=== PATIENT | female | born 1950 | race Caucasian/White ===

== ENCOUNTER 2017-09-12 14:23 | Inpatient (IN) ==
[2017-09-12 14:55] LABS: Basophils # 0.1 10*3/uL (0.0-0.2); Basophils % 0.4 % (0.0-0.8); Eosinophils % 0.1 % (0.00-10.9); Hematocrit 47.4 VOL% (35.7-47.0); Hemoglobin 14.2 GM/DL (12.0-16.0); Immature Granulocytes % 0.7 %; Lymphocytes # 0.6 10*3/uL (1.4-4.0); Lymphocytes % 4.3 % (21.3-54.2); Mean Corpuscular Hemoglobin 27 PG (27-34); Mean Corpuscular Volume 91.3 FL (87-102); Mean Platelet Volume 10.4 FL (9.6-12.0); Monocytes # 0.2 10*3/uL (0.11-0.8); Monocytes % 1.3 % (1.7-12.7); Neutrophils # 13.1 10*3/uL (1.4-7.4); Neutrophils % 93.2 % (38.7-73.9); Platelet Count 241 T/CUMM (130-400); Red Blood Count 5.19 MC/CUMM (3.8-5.5); Red Cell Distribution Width 17.9 % (9.3-17.3)
[2017-09-12 15:05] LABS: PT Patient Result 10.4 SECS; Partial Thromboplastin Time 25.1 SECS (0-40)
[2017-09-12 15:12] LABS: ABG Base Excess 9.2 MMOL/L (-2.5-2.5); ABG HCO3 39.9 MMOL/L (20-26); ABG Oxygen Saturation 99.6 % (95-100); ABG PH 7.264 (7.35-7.45); ABG PO2 333.5 MM HG (80-95); ABG TCO2 42.7 MMOL/L (23-27)
[2017-09-12 15:13] LABS: Albumin 3.7 G/DL (3.4-5.0); Bilirubin,Total 0.6 MG/DL (0.2-1.0); Calcium 8.8 MG/DL (8.5-10.1); Osmolality,Calculated 272.2 MOS/KG (273-304)
[2017-09-12 15:15] LABS: ABG PCO2 90.1 MM HG (35-48)
[2017-09-12] MEDS ORDERED: ROCURONIUM 100 MG/10 ML VIAL IV ONE ×2 (15:29→15:35)
[2017-09-12] MEDS ORDERED: PROPOFOL 200 MG/20 ML VIAL IV ONE (15:31)
[2017-09-12] MEDS ORDERED: ETOMIDATE 20 MG/10 ML VIAL IV ONE ×2 (15:34→16:25)
[2017-09-12] MEDS ORDERED: PROPOFOL 1,000 MG/100 ML BOTTLE IV ONE (15:39)
[2017-09-12] MEDS: PROPOFOL 1,000 MG/100 ML BOTTLE IV SCH (15:53)
[2017-09-12] MEDS ORDERED: AZITHROMYCIN INJ 500 MG in SODIUM CHLORIDE 0.9% 250 ML IV STA (16:06)
[2017-09-12] MEDS ORDERED: methylPREDNISolone SOD SUC 125 MG/2 ML VIAL IV STA (16:06)
[2017-09-12] MEDS ORDERED: AZITHROMYCIN 500 MG VIAL IV ONE (16:30)
[2017-09-12] MEDS ORDERED: methylPREDNISolone SOD SUC 125 MG/2 ML VIAL ONE (16:30)
[2017-09-12] MEDS ORDERED: SODIUM CHLORIDE 0.9% 1,000 ML IV STA (17:24)
[2017-09-12 17:28] LABS: Lymphocytes 3 % (20-55); Segmented Neutrophils 96 % (50-85); Total Cells Counted 100
[2017-09-12 17:29] LABS: Platelet Estimate Normal; Polychromasia Slight
[2017-09-12 18:01] LABS: ABG Base Excess 9.8 MMOL/L (-2.5-2.5); ABG HCO3 33.6 MMOL/L (20-26); ABG PCO2 54.7 MM HG (35-48); ABG PH 7.429 (7.35-7.45); ABG TCO2 31.9 MMOL/L (23-27); Pt O2 Delivery Device Ventilator
[2017-09-12 18:09] LABS: Apearance,Urine CLEAR (Clear); Bilirubin,Urine Negative (Negative); Blood, Urine Negative (Negative); Glucose,Urine (UA) 50 mg/dL (Negative); Ketones,Urine Negative (Negative); Mucus,Urine Occasional /LPF (Occasional); Nitrite,Urine Negative (Negative); Protein,Urine Negative; RBC,Urine <1 /HPF (0-4); Urine Color Yellow (Yellow); Urine Specific Gravity 1.021 (1.001-1.035); Urine Urobilinogen < 2.0 EU/DL (0.2-1.0); WBC,Urine <1 /HPF (0-6)
[2017-09-12] MEDS: MORPHINE 2 MG/1 ML SYRINGE IV PRN (20:48)
[2017-09-13] MEDS: MORPHINE 2 MG/1 ML SYRINGE IV PRN ×5 (01:15→21:34)
[2017-09-13 05:25] LABS: Hematocrit 38.4 VOL% (35.7-47.0); Hemoglobin 12.4 GM/DL (12.0-16.0); Immature Granulocytes % 0.8 %; Immature Granulocytes Absolute 0.05 #; Lymphocytes # 0.7 10*3/uL (1.4-4.0); Lymphocytes % 11.3 % (21.3-54.2); Mean Corpuscular HGB Conc 32.3 GM/DL (32-36); Mean Corpuscular Hemoglobin 28 PG (27-34); Mean Corpuscular Volume 85.9 FL (87-102); Mean Platelet Volume 10.9 FL (9.6-12.0); Monocytes # 0.4 10*3/uL (0.11-0.8); Monocytes % 5.8 % (1.7-12.7); Neutrophils # 5.4 10*3/uL (1.4-7.4); Neutrophils % 82.1 % (38.7-73.9); Red Blood Count 4.47 MC/CUMM (3.8-5.5); Red Cell Distribution Width 17.3 % (9.3-17.3)
[2017-09-13 05:27] LABS: Platelet Count 192 T/CUMM (130-400); White Blood Count 6.6 T/CUMM (4-12)
[2017-09-13 05:47] LABS: Potassium 4.5 MMOL/L (3.5-5.1)
[2017-09-13] MEDS ORDERED: FUROSEMIDE 40 MG/4 ML VIAL IV ONE (08:27)
[2017-09-13] MEDS: methylPREDNISolone SOD SUC 40 MG/1 ML VIAL IV SCH ×3 (08:27→21:34)
[2017-09-13] MEDS: PANTOPRAZOLE 40 MG VIAL IV SCH (09:39)
[2017-09-13] MEDS: ALBUTEROL/IPRATROPIUM 3 ML NEB RESP TX SCH ×2 (12:08→20:38)
[2017-09-13] MEDS: PROPOFOL 1,000 MG/100 ML BOTTLE IV SCH ×3 (12:55→22:31)
[2017-09-13] MEDS ORDERED: AZITHROMYCIN INJ 500 MG in SODIUM CHLORIDE 0.9% 250 ML IV SCH (17:30)
[2017-09-14] MEDS: methylPREDNISolone SOD SUC 40 MG/1 ML VIAL IV SCH ×4 (01:45→20:18)
[2017-09-14] MEDS: ALBUTEROL/IPRATROPIUM 3 ML NEB RESP TX SCH ×4 (01:52→20:34)
[2017-09-14 04:07] LABS: Hemoglobin 12.4 GM/DL (12.0-16.0); Immature Granulocytes % 0.5 %; Immature Granulocytes Absolute 0.04 #; Lymphocytes # 0.5 10*3/uL (1.4-4.0); Lymphocytes % 5.2 % (21.3-54.2); Mean Corpuscular Hemoglobin 27 PG (27-34); Monocytes # 0.4 10*3/uL (0.11-0.8); Monocytes % 4.2 % (1.7-12.7); Neutrophils # 7.9 10*3/uL (1.4-7.4); Neutrophils % 90.1 % (38.7-73.9); Platelet Count 203 T/CUMM (130-400); Red Cell Distribution Width 17.4 % (9.3-17.3); White Blood Count 8.8 T/CUMM (4-12)
[2017-09-14 04:31] LABS: Calcium 8.2 MG/DL (8.5-10.1); Osmolality,Calculated 279.5 MOS/KG (273-304); Potassium 3.9 MMOL/L (3.5-5.1)
[2017-09-14 07:26] LABS: ABG Base Excess 7.4 MMOL/L (-2.5-2.5); ABG HCO3 31.2 MMOL/L (20-26); ABG Oxygen Saturation 99.9 % (95-100); ABG PCO2 51.5 MM HG (35-48); ABG TCO2 29.2 MMOL/L (23-27); Allen Test Positive; Pt O2 Delivery Device Ventilator
[2017-09-14] MEDS: PANTOPRAZOLE 40 MG VIAL IV SCH (08:13)
[2017-09-14] MEDS: PROPOFOL 1,000 MG/100 ML BOTTLE IV SCH ×4 (08:14→23:16)
[2017-09-14] MEDS ORDERED: SODIUM CHLORIDE 0.9% 250 ML IV ONE (09:26)
[2017-09-14] MEDS: SODIUM CHLORIDE 0.9% 1,000 ML IV SCH ×2 (09:37→17:08)
[2017-09-14] MEDS: SODIUM CHLORIDE 0.9% 500 ML IV ONE ×2 (14:20→14:35)
[2017-09-14] MEDS: MORPHINE 2 MG/1 ML SYRINGE IV PRN ×2 (14:25→20:18)
[2017-09-14] MEDS: AZITHROMYCIN 250 MG TABLET PO SCH (20:19)
[2017-09-15] MEDS: SODIUM CHLORIDE 0.9% 1,000 ML IV SCH ×4 (00:07→19:10)
[2017-09-15] MEDS: ALBUTEROL/IPRATROPIUM 3 ML NEB RESP TX SCH ×4 (01:14→19:25)
[2017-09-15] MEDS: methylPREDNISolone SOD SUC 40 MG/1 ML VIAL IV SCH ×4 (02:00→19:50)
[2017-09-15] MEDS: PROPOFOL 1,000 MG/100 ML BOTTLE IV SCH ×3 (03:12→17:51)
[2017-09-15 04:14] LABS: ABG Base Excess 2.8 MMOL/L (-2.5-2.5); ABG HCO3 26.9 MMOL/L (20-26); ABG Oxygen Saturation 98.5 % (95-100); ABG PCO2 54.2 MM HG (35-48); ABG PH 7.347 (7.35-7.45); ABG TCO2 26.4 MMOL/L (23-27); Allen Test Positive; Pt O2 Delivery Device Ventilator
[2017-09-15 05:17] LABS: Hematocrit 38.2 VOL% (35.7-47.0); Immature Granulocytes % 0.7 %; Immature Granulocytes Absolute 0.05 #; Lymphocytes # 0.3 10*3/uL (1.4-4.0); Lymphocytes % 3.7 % (21.3-54.2); Mean Corpuscular HGB Conc 31.4 GM/DL (32-36); Mean Corpuscular Hemoglobin 28 PG (27-34); Mean Corpuscular Volume 88.8 FL (87-102); Monocytes # 0.2 10*3/uL (0.11-0.8); Monocytes % 2.8 % (1.7-12.7); Neutrophils # 6.8 10*3/uL (1.4-7.4); Neutrophils % 92.8 % (38.7-73.9); Platelet Count 197 T/CUMM (130-400); Red Cell Distribution Width 17.3 % (9.3-17.3); White Blood Count 7.4 T/CUMM (4-12)
[2017-09-15 05:54] LABS: Calcium 7.6 MG/DL (8.5-10.1); Osmolality,Calculated 286.1 MOS/KG (273-304); Potassium 4.2 MMOL/L (3.5-5.1)
[2017-09-15 06:02] LABS: Band Neutrophils 1 % (0-10); Lymphocytes 4 % (20-55); Myelocytes 1 %; Segmented Neutrophils 94 % (50-85); Total Cells Counted 100
[2017-09-15 06:03] LABS: Anisocytosis 1+; Hypochromasia 1+; Ovalocytes Few; Platelet Estimate Adequate
[2017-09-15] MEDS: PANTOPRAZOLE 40 MG VIAL IV SCH (08:31)
[2017-09-15] MEDS: MORPHINE 2 MG/1 ML SYRINGE IV PRN (08:37)
[2017-09-15] MEDS: HYDROmorphone 2 MG/1 ML VIAL IV PRN ×2 (11:59→20:52)
[2017-09-15] MEDS: hydrALAZINE 20 MG/1 ML VIAL IV PRN (12:00)
[2017-09-15] MEDS ORDERED: SODIUM CHLORIDE 0.9% 500 ML IV ONE (12:34)
[2017-09-15] MEDS: AZITHROMYCIN 250 MG TABLET PO SCH (19:50)
[2017-09-16] MEDS: ALBUTEROL/IPRATROPIUM 3 ML NEB RESP TX SCH ×6 (00:39→23:01)
[2017-09-16] MEDS: INSULIN REGULAR 100 UNIT/ML SUBCUT SCH ×4 (00:54→17:47)
[2017-09-16] MEDS: SODIUM CHLORIDE 0.9% 1,000 ML IV SCH ×4 (01:45→23:57)
[2017-09-16] MEDS: methylPREDNISolone SOD SUC 40 MG/1 ML VIAL IV SCH ×4 (02:43→19:11)
[2017-09-16] MEDS: PROPOFOL 1,000 MG/100 ML BOTTLE IV SCH ×2 (03:20→16:31)
[2017-09-16] MEDS: MORPHINE 2 MG/1 ML SYRINGE IV PRN ×3 (07:53→19:12)
[2017-09-16] MEDS: PANTOPRAZOLE 40 MG VIAL IV SCH ×2 (07:56→08:10)
[2017-09-16 08:01] LABS: ABG Base Excess 0.6 MMOL/L (-2.5-2.5); ABG HCO3 28.2 MMOL/L (20-26); ABG Oxygen Saturation 95.8 % (95-100); ABG PCO2 58.5 MM HG (35-48); ABG PH 7.301 (7.35-7.45); ABG PO2 84.4 MM HG (80-95)
[2017-09-16] MEDS: HYDROmorphone 2 MG/1 ML VIAL IV PRN ×4 (09:58→22:40)
[2017-09-16] MEDS: hydrALAZINE 20 MG/1 ML VIAL IV PRN (16:32)
[2017-09-16] MEDS: AZITHROMYCIN 250 MG TABLET PO SCH ×2 (19:11→19:15)
[2017-09-17] MEDS: HYDROmorphone 2 MG/1 ML VIAL IV PRN ×2 (02:20→07:18)
[2017-09-17] MEDS: ALBUTEROL/IPRATROPIUM 3 ML NEB RESP TX SCH ×5 (02:32→20:12)
[2017-09-17] MEDS: methylPREDNISolone SOD SUC 40 MG/1 ML VIAL IV SCH ×4 (02:49→20:57)
[2017-09-17 05:22] LABS: Basophils % 0.1 % (0.0-0.8); Hematocrit 48.1 VOL% (35.7-47.0); Hemoglobin 14.1 GM/DL (12.0-16.0); Immature Granulocytes % 0.9 %; Lymphocytes # 0.3 10*3/uL (1.4-4.0); Lymphocytes % 2.4 % (21.3-54.2); Mean Corpuscular HGB Conc 29.3 GM/DL (32-36); Mean Corpuscular Hemoglobin 27 PG (27-34); Mean Corpuscular Volume 91.4 FL (87-102); Mean Platelet Volume 10.9 FL (9.6-12.0); Monocytes # 0.4 10*3/uL (0.11-0.8); Monocytes % 3.5 % (1.7-12.7); Neutrophils # 10.6 10*3/uL (1.4-7.4); Neutrophils % 93.1 % (38.7-73.9); Platelet Count 193 T/CUMM (130-400); Red Blood Count 5.26 MC/CUMM (3.8-5.5); Red Cell Distribution Width 17.8 % (9.3-17.3); White Blood Count 11.4 T/CUMM (4-12)
[2017-09-17 06:02] LABS: Osmolality,Calculated 292.7 MOS/KG (273-304); Potassium 4.2 MMOL/L (3.5-5.1)
[2017-09-17] MEDS: SODIUM CHLORIDE 0.9% 1,000 ML IV SCH ×3 (06:11→20:59)
[2017-09-17 06:19] LABS: Band Neutrophils 1 % (0-10); Lymphocytes 8 % (20-55); Platelet Estimate Normal; Segmented Neutrophils 91 % (50-85); Total Cells Counted 100
[2017-09-17] MEDS: PANTOPRAZOLE 40 MG VIAL IV SCH (09:11)
[2017-09-17] MEDS: MORPHINE 2 MG/1 ML SYRINGE IV PRN ×5 (09:17→20:57)
[2017-09-17] MEDS: hydrALAZINE 20 MG/1 ML VIAL IV PRN ×2 (10:29→20:58)
[2017-09-17] MEDS: PROPOFOL 1,000 MG/100 ML BOTTLE IV SCH (18:09)
[2017-09-17] MEDS: AZITHROMYCIN 250 MG TABLET PO SCH (20:57)
[2017-09-18] MEDS: ALBUTEROL/IPRATROPIUM 3 ML NEB RESP TX SCH ×6 (00:36→19:27)
[2017-09-18] MEDS: methylPREDNISolone SOD SUC 40 MG/1 ML VIAL IV SCH ×4 (02:09→19:34)
[2017-09-18] MEDS: MORPHINE 2 MG/1 ML SYRINGE IV PRN ×7 (02:09→22:30)
[2017-09-18] MEDS: PANTOPRAZOLE 40 MG VIAL IV SCH (08:26)
[2017-09-18] MEDS: SODIUM CHLORIDE 0.9% 1,000 ML IV SCH ×2 (08:28→22:30)
[2017-09-18] MEDS: AZITHROMYCIN 250 MG TABLET PO SCH (19:34)
[2017-09-19] MEDS: ALBUTEROL/IPRATROPIUM 3 ML NEB RESP TX SCH ×7 (02:49→23:34)
[2017-09-19] MEDS: methylPREDNISolone SOD SUC 40 MG/1 ML VIAL IV SCH ×2 (03:08→08:34)
[2017-09-19] MEDS: HYDROmorphone 2 MG/1 ML VIAL IV PRN ×3 (03:16→20:52)
[2017-09-19] MEDS: SODIUM CHLORIDE 0.9% 1,000 ML IV SCH ×2 (08:33→08:37)
[2017-09-19] MEDS: PANTOPRAZOLE 40 MG VIAL IV SCH (08:34)
[2017-09-19] MEDS: predniSONE 20 MG TABLET PO SCH (10:09)
[2017-09-19] MEDS: MORPHINE 2 MG/1 ML SYRINGE IV PRN (10:54)
[2017-09-19] MEDS: oxyCODONE/ACETAMINOPHEN 5-325 MG TABLET PO PRN ×2 (12:45→19:57)
[2017-09-19] MEDS: hydrALAZINE 20 MG/1 ML VIAL IV PRN (12:45)
[2017-09-19] MEDS: CYCLOBENZAPRINE 10 MG TABLET PO PRN (12:45)
[2017-09-19] MEDS ORDERED: METOPROLOL TARTRATE 25 MG TABLET PO ONE (13:28)
[2017-09-19] MEDS: ACETYLCYSTEINE 20% 800 MG/4 ML VIAL RESP TX SCH ×2 (15:13→23:36)
[2017-09-19] MEDS: AZITHROMYCIN 250 MG TABLET PO SCH (20:52)
[2017-09-20] MEDS: oxyCODONE/ACETAMINOPHEN 5-325 MG TABLET PO PRN ×2 (01:34→15:25)
[2017-09-20] MEDS: hydrALAZINE 20 MG/1 ML VIAL IV PRN (03:57)
[2017-09-20] MEDS: ALBUTEROL/IPRATROPIUM 3 ML NEB RESP TX SCH ×6 (04:14→23:54)
[2017-09-20] MEDS ORDERED: METOPROLOL TARTRATE 5 MG/5 ML VIAL IV SCH (06:00)
[2017-09-20 06:17] LABS: Basophils % 0.1 % (0.0-0.8); Eosinophils % 0.2 % (0.00-10.9); Hematocrit 47.3 VOL% (35.7-47.0); Hemoglobin 14.2 GM/DL (12.0-16.0); Immature Granulocytes Absolute 0.21 #; Lymphocytes # 0.7 10*3/uL (1.4-4.0); Lymphocytes % 3.2 % (21.3-54.2); Mean Corpuscular Hemoglobin 28 PG (27-34); Mean Corpuscular Volume 91.7 FL (87-102); Mean Platelet Volume 11.4 FL (9.6-12.0); Monocytes # 0.9 10*3/uL (0.11-0.8); Monocytes % 4.3 % (1.7-12.7); Neutrophils # 18.5 10*3/uL (1.4-7.4); Neutrophils % 91.2 % (38.7-73.9); Platelet Count 144 T/CUMM (130-400); Red Blood Count 5.16 MC/CUMM (3.8-5.5); Red Cell Distribution Width 17.1 % (9.3-17.3); White Blood Count 20.3 T/CUMM (4-12)
[2017-09-20 06:38] LABS: Band Neutrophils 2 % (0-10); Eosinophils 1 % (0-10); Hypochromasia 1+; Lymphocytes 7 % (20-55); Microcytosis 1+; Segmented Neutrophils 87 % (50-85); Total Cells Counted 100
[2017-09-20] MEDS: METOPROLOL TARTRATE 5 MG/5 ML VIAL IV SCH ×3 (06:40→19:05)
[2017-09-20 06:56] LABS: Albumin 2.5 G/DL (3.4-5.0); Bilirubin,Total 0.5 MG/DL (0.2-1.0); Calcium 8.1 MG/DL (8.5-10.1); Magnesium 2.1 MG/DL (1.8-2.4); Osmolality,Calculated 288.7 MOS/KG (273-304); Total Protein 5.1 G/DL (6.4-8.3)
[2017-09-20] MEDS: ACETYLCYSTEINE 20% 800 MG/4 ML VIAL RESP TX SCH ×3 (07:31→23:56)
[2017-09-20] MEDS: CYCLOBENZAPRINE 10 MG TABLET PO PRN ×2 (07:54→20:35)
[2017-09-20] MEDS: predniSONE 20 MG TABLET PO SCH (08:00)
[2017-09-20] MEDS: PANTOPRAZOLE 40 MG VIAL IV SCH (08:00)
[2017-09-20] MEDS ORDERED: FUROSEMIDE 20 MG/2 ML VIAL IV ONE (11:59)
[2017-09-20] MEDS: methylPREDNISolone SOD SUC 40 MG/1 ML VIAL IV SCH ×2 (13:20→20:38)
[2017-09-20] MEDS: AZITHROMYCIN 250 MG TABLET PO SCH (20:35)
[2017-09-20] MEDS: METOPROLOL TARTRATE 50 MG TABLET PO SCH (20:35)
[2017-09-21] MEDS: ALBUTEROL/IPRATROPIUM 3 ML NEB RESP TX SCH ×5 (04:03→19:36)
[2017-09-21] MEDS: methylPREDNISolone SOD SUC 40 MG/1 ML VIAL IV SCH ×3 (05:46→20:51)
[2017-09-21] MEDS: ACETYLCYSTEINE 20% 6,000 MG/30 ML VIAL RESP TX SCH ×2 (07:30→14:15)
[2017-09-21] MEDS: ACETYLCYSTEINE 20% 800 MG/4 ML VIAL RESP TX SCH (08:06)
[2017-09-21] MEDS: METOPROLOL TARTRATE 50 MG TABLET PO SCH ×2 (08:35→20:51)
[2017-09-21] MEDS: PANTOPRAZOLE 40 MG VIAL IV SCH (08:35)
[2017-09-21] MEDS: CYCLOBENZAPRINE 10 MG TABLET PO PRN ×2 (08:50→20:51)
[2017-09-21] MEDS: THEOPHYLLINE ER (24 HR) 300 MG CAPSULE PO SCH (08:50)
[2017-09-21] MEDS: oxyCODONE/ACETAMINOPHEN 5-325 MG TABLET PO PRN ×2 (10:39→16:37)
[2017-09-21] MEDS ORDERED: ZINC OXIDE PASTE 113 GM TUBE TOP PRN (11:50)
[2017-09-21] MEDS: DILTIAZEM 30 MG TABLET PO PRN (18:22)
[2017-09-21] MEDS: AZITHROMYCIN 250 MG TABLET PO SCH (20:51)
[2017-09-21] MEDS: hydrALAZINE 20 MG/1 ML VIAL IV PRN (20:51)
[2017-09-21] MEDS ORDERED: METOPROLOL TARTRATE 5 MG/5 ML VIAL IV ONE (21:28)
[2017-09-21] MEDS ORDERED: LOPERAMIDE 2 MG CAPSULE PO PRN (21:42)
[2017-09-22] MEDS: ACETYLCYSTEINE 20% 6,000 MG/30 ML VIAL RESP TX SCH ×3 (00:35→15:10)
[2017-09-22] MEDS: ALBUTEROL/IPRATROPIUM 3 ML NEB RESP TX SCH ×6 (00:35→21:13)
[2017-09-22] MEDS: methylPREDNISolone SOD SUC 40 MG/1 ML VIAL IV SCH ×3 (05:43→21:04)
[2017-09-22] MEDS: oxyCODONE/ACETAMINOPHEN 5-325 MG TABLET PO PRN ×4 (05:48→22:40)
[2017-09-22] MEDS: THEOPHYLLINE ER (24 HR) 300 MG CAPSULE PO SCH (09:54)
[2017-09-22] MEDS: METOPROLOL TARTRATE 50 MG TABLET PO SCH (09:54)
[2017-09-22] MEDS: DILTIAZEM 30 MG TABLET PO PRN ×2 (09:54→21:23)
[2017-09-22] MEDS: PANTOPRAZOLE 40 MG VIAL IV SCH (09:55)
[2017-09-22] MEDS: AZITHROMYCIN 250 MG TABLET PO SCH (21:00)
[2017-09-22] MEDS: hydrALAZINE 20 MG/1 ML VIAL IV PRN (21:04)
[2017-09-22] MEDS: METOPROLOL TARTRATE 100 MG TABLET PO SCH (21:04)
[2017-09-23] MEDS: ALBUTEROL/IPRATROPIUM 3 ML NEB RESP TX SCH ×6 (03:04→19:47)
[2017-09-23] MEDS: methylPREDNISolone SOD SUC 40 MG/1 ML VIAL IV SCH ×3 (05:06→21:09)
[2017-09-23 05:28] LABS: Basophils % 0.1 % (0.0-0.8); Hematocrit 47.3 VOL% (35.7-47.0); Hemoglobin 14.2 GM/DL (12.0-16.0); Immature Granulocytes % 0.7 %; Immature Granulocytes Absolute 0.16 #; Lymphocytes # 0.2 10*3/uL (1.4-4.0); Mean Corpuscular Hemoglobin 27 PG (27-34); Mean Corpuscular Volume 90.3 FL (87-102); Mean Platelet Volume 11.7 FL (9.6-12.0); Monocytes # 0.2 10*3/uL (0.11-0.8); Monocytes % 1.1 % (1.7-12.7); Neutrophils # 21.3 10*3/uL (1.4-7.4); Neutrophils % 97.1 % (38.7-73.9); Platelet Count 199 T/CUMM (130-400); Red Blood Count 5.24 MC/CUMM (3.8-5.5); Red Cell Distribution Width 16.6 % (9.3-17.3); White Blood Count 21.9 T/CUMM (4-12)
[2017-09-23 05:32] LABS: Calcium 8.2 MG/DL (8.5-10.1)
[2017-09-23 05:33] LABS: Osmolality,Calculated 280.4 MOS/KG (273-304); Potassium 4.4 MMOL/L (3.5-5.1)
[2017-09-23 05:54] LABS: Hypochromasia 1+; Lymphocytes 2 % (20-55); Microcytosis 1+; Platelet Estimate Adequate; Segmented Neutrophils 97 % (50-85); Total Cells Counted 100
[2017-09-23] MEDS: ACETYLCYSTEINE 20% 6,000 MG/30 ML VIAL RESP TX SCH ×3 (06:46→14:24)
[2017-09-23] MEDS: THEOPHYLLINE ER (24 HR) 300 MG CAPSULE PO SCH (09:17)
[2017-09-23] MEDS: METOPROLOL TARTRATE 100 MG TABLET PO SCH ×2 (09:18→21:09)
[2017-09-23] MEDS: DILTIAZEM 30 MG TABLET PO PRN (09:18)
[2017-09-23] MEDS: oxyCODONE/ACETAMINOPHEN 5-325 MG TABLET PO PRN ×2 (09:19→18:35)
[2017-09-23] MEDS: PANTOPRAZOLE 40 MG VIAL IV SCH (09:19)
[2017-09-23] MEDS: DILTIAZEM CD 120 MG CAPSULE PO SCH ×2 (14:13→21:08)
[2017-09-23] MEDS: AZITHROMYCIN 250 MG TABLET PO SCH (21:08)
[2017-09-23] MEDS: CYCLOBENZAPRINE 10 MG TABLET PO PRN (21:31)
[2017-09-24] MEDS: ALBUTEROL/IPRATROPIUM 3 ML NEB RESP TX SCH ×6 (00:25→20:24)
[2017-09-24] MEDS: ACETYLCYSTEINE 20% 6,000 MG/30 ML VIAL RESP TX SCH ×3 (00:25→15:46)
[2017-09-24 02:26] LABS: Basophils % 0.1 % (0.0-0.8); Hematocrit 43.5 VOL% (35.7-47.0); Hemoglobin 13.2 GM/DL (12.0-16.0); Immature Granulocytes % 0.8 %; Immature Granulocytes Absolute 0.14 #; Lymphocytes # 0.2 10*3/uL (1.4-4.0); Mean Corpuscular HGB Conc 30.3 GM/DL (32-36); Mean Corpuscular Hemoglobin 27 PG (27-34); Mean Corpuscular Volume 89.1 FL (87-102); Mean Platelet Volume 10.9 FL (9.6-12.0); Monocytes # 0.3 10*3/uL (0.11-0.8); Monocytes % 1.7 % (1.7-12.7); Neutrophils # 17.9 10*3/uL (1.4-7.4); Neutrophils % 96.4 % (38.7-73.9); Platelet Count 201 T/CUMM (130-400); Red Blood Count 4.88 MC/CUMM (3.8-5.5); Red Cell Distribution Width 16.2 % (9.3-17.3); White Blood Count 18.5 T/CUMM (4-12)
[2017-09-24 03:03] LABS: Calcium 8.3 MG/DL (8.5-10.1); Osmolality,Calculated 284.3 MOS/KG (273-304); Potassium 5.3 MMOL/L (3.5-5.1)
[2017-09-24] MEDS: methylPREDNISolone SOD SUC 40 MG/1 ML VIAL IV SCH ×3 (05:34→20:53)
[2017-09-24] MEDS: oxyCODONE/ACETAMINOPHEN 5-325 MG TABLET PO PRN ×3 (06:17→20:53)
[2017-09-24 06:18] LABS: Hypochromasia 1+; Lymphocytes 3 % (20-55); Microcytosis 1+; Segmented Neutrophils 95 % (50-85); Total Cells Counted 100
[2017-09-24 06:19] LABS: Ovalocytes Slight; Platelet Estimate Normal
[2017-09-24] MEDS: THEOPHYLLINE ER (24 HR) 300 MG CAPSULE PO SCH (08:40)
[2017-09-24] MEDS: METOPROLOL TARTRATE 100 MG TABLET PO SCH ×2 (08:40→20:53)
[2017-09-24] MEDS: DILTIAZEM CD 120 MG CAPSULE PO SCH ×2 (08:40→20:52)
[2017-09-24] MEDS: PANTOPRAZOLE 40 MG VIAL IV SCH (08:41)
[2017-09-24] MEDS: AZITHROMYCIN 250 MG TABLET PO SCH (20:53)
[2017-09-24] MEDS: CYCLOBENZAPRINE 10 MG TABLET PO PRN (21:45)
[2017-09-25] MEDS: ALBUTEROL/IPRATROPIUM 3 ML NEB RESP TX SCH ×6 (01:06→20:21)
[2017-09-25] MEDS: ACETYLCYSTEINE 20% 6,000 MG/30 ML VIAL RESP TX SCH ×3 (04:15→15:22)
[2017-09-25] MEDS: methylPREDNISolone SOD SUC 40 MG/1 ML VIAL IV SCH ×2 (05:09→17:28)
[2017-09-25 06:04] LABS: Calcium 8.2 MG/DL (8.5-10.1); Magnesium 1.9 MG/DL (1.8-2.4); Osmolality,Calculated 279.5 MOS/KG (273-304); Potassium 5.1 MMOL/L (3.5-5.1)
[2017-09-25] MEDS: METOPROLOL TARTRATE 100 MG TABLET PO SCH ×2 (08:58→21:07)
[2017-09-25] MEDS: DILTIAZEM CD 120 MG CAPSULE PO SCH (08:58)
[2017-09-25] MEDS: THEOPHYLLINE ER (24 HR) 300 MG CAPSULE PO SCH (08:58)
[2017-09-25] MEDS: PANTOPRAZOLE 40 MG VIAL IV SCH (08:58)
[2017-09-25] MEDS: oxyCODONE/ACETAMINOPHEN 5-325 MG TABLET PO PRN ×2 (09:05→17:27)
[2017-09-25] MEDS ORDERED: FUROSEMIDE 40 MG/4 ML VIAL IV ONE (10:14)
[2017-09-25] MEDS: DILTIAZEM CD 240 MG CAPSULE PO SCH ×2 (13:17→21:07)
[2017-09-25] MEDS: NYSTATIN 500,000 UNIT/5 ML UDCUP SWISH/SWAL SCH ×3 (13:17→21:07)
[2017-09-25] MEDS: CYCLOBENZAPRINE 10 MG TABLET PO PRN (21:10)
[2017-09-26] MEDS: ALBUTEROL/IPRATROPIUM 3 ML NEB RESP TX SCH ×7 (00:58→19:37)
[2017-09-26] MEDS: ACETYLCYSTEINE 20% 6,000 MG/30 ML VIAL RESP TX SCH ×4 (00:58→23:55)
[2017-09-26] MEDS: methylPREDNISolone SOD SUC 40 MG/1 ML VIAL IV SCH ×2 (04:36→16:40)
[2017-09-26] MEDS: oxyCODONE/ACETAMINOPHEN 5-325 MG TABLET PO PRN ×4 (04:38→22:11)
[2017-09-26] MEDS: THEOPHYLLINE ER (24 HR) 300 MG CAPSULE PO SCH (09:53)
[2017-09-26] MEDS: METOPROLOL TARTRATE 100 MG TABLET PO SCH ×2 (09:54→22:07)
[2017-09-26] MEDS: DILTIAZEM CD 240 MG CAPSULE PO SCH ×2 (09:54→22:07)
[2017-09-26] MEDS: NYSTATIN 500,000 UNIT/5 ML UDCUP SWISH/SWAL SCH ×4 (09:55→22:07)
[2017-09-26] MEDS: PANTOPRAZOLE 40 MG VIAL IV SCH (09:56)
[2017-09-26] MEDS: CYCLOBENZAPRINE 10 MG TABLET PO PRN (22:11)
[2017-09-27] MEDS: ALBUTEROL/IPRATROPIUM 3 ML NEB RESP TX SCH ×4 (02:36→12:05)
[2017-09-27] MEDS: methylPREDNISolone SOD SUC 40 MG/1 ML VIAL IV SCH (06:08)
[2017-09-27] MEDS: ACETYLCYSTEINE 20% 6,000 MG/30 ML VIAL RESP TX SCH (08:45)
[2017-09-27] MEDS: METOPROLOL TARTRATE 100 MG TABLET PO SCH (08:48)
[2017-09-27] MEDS: PANTOPRAZOLE 40 MG VIAL IV SCH (08:48)
[2017-09-27] MEDS: NYSTATIN 500,000 UNIT/5 ML UDCUP SWISH/SWAL SCH ×2 (08:48→12:01)
[2017-09-27] MEDS: DILTIAZEM CD 240 MG CAPSULE PO SCH (08:48)
[2017-09-27] MEDS: THEOPHYLLINE ER (24 HR) 300 MG CAPSULE PO SCH (08:48)
[2017-09-27] MEDS: oxyCODONE/ACETAMINOPHEN 5-325 MG TABLET PO PRN (08:59)
[2017-09-27] MEDS ORDERED: predniSONE 10 MG TABLET PO SCH (11:30)
[2017-09-27 11:58] VITALS: BP 143/68
[2017-09-28] MEDS ORDERED: FUROSEMIDE 20 MG TABLET PO SCH (09:00)
== END 2017-09-27 13:23 | disposition swing bed (61) | DRG 208 ==
LOC: N.ED 14:23 → SUATTDRO 16:43 → N.EDINP 17:12 → N.CC 18:14 → N.4E 09-17 11:39 → N.TELES 09-20 05:24

== ENCOUNTER 2017-10-09 21:05 | Inpatient (IN) ==
[2017-10-09] MEDS ORDERED: methylPREDNISolone SOD SUC 125 MG/2 ML VIAL IV STA (21:53)
[2017-10-09] MEDS ORDERED: ALBUTEROL/IPRATROPIUM 3 ML NEB RESP TX STA (21:53)
[2017-10-09 22:08] LABS: Basophils % 0.1 % (0.0-0.8); Eosinophils % 0.3 % (0.00-10.9); Hematocrit 35.5 VOL% (35.7-47.0); Hemoglobin 10.4 GM/DL (12.0-16.0); Immature Granulocytes % 0.6 %; Immature Granulocytes Absolute 0.07 #; Lymphocytes # 0.8 10*3/uL (1.4-4.0); Lymphocytes % 6.8 % (21.3-54.2); Mean Corpuscular HGB Conc 29.3 GM/DL (32-36); Mean Corpuscular Hemoglobin 27 PG (27-34); Mean Corpuscular Volume 92.4 FL (87-102); Mean Platelet Volume 9.9 FL (9.6-12.0); Monocytes # 0.5 10*3/uL (0.11-0.8); Neutrophils # 10.2 10*3/uL (1.4-7.4); Neutrophils % 88.2 % (38.7-73.9); Platelet Count 191 T/CUMM (130-400); Red Blood Count 3.84 MC/CUMM (3.8-5.5); Red Cell Distribution Width 16.6 % (9.3-17.3); White Blood Count 11.5 T/CUMM (4-12)
[2017-10-09] MEDS ORDERED: methylPREDNISolone SOD SUC 125 MG/2 ML VIAL ONE (22:14)
[2017-10-09] MEDS ORDERED: ONDANSETRON 4 MG/2 ML VIAL IV STA (22:17)
[2017-10-09] MEDS ORDERED: MORPHINE 2 MG/1 ML SYRINGE IV STA (22:17)
[2017-10-09] MEDS ORDERED: ONDANSETRON 4 MG/2 ML VIAL ONE (22:21)
[2017-10-09] MEDS ORDERED: MORPHINE 10 MG/1 ML VIAL ONE (22:22)
[2017-10-09 23:00] LABS: Alanine Aminotransferase 16 U/L (13-56); Albumin 2.6 G/DL (3.4-5.0); Alkaline Phosphatase 100 U/L (45-117); Aspartate Amino Transferase 11 U/L (0-37); Blood Urea Nitrogen 19 MG/DL (7-18); Calcium 8.1 MG/DL (8.5-10.1); Glucose 157 MG/DL (74-106); Osmolality,Calculated 270.4 MOS/KG (273-304); Potassium 4.2 MMOL/L (3.5-5.1); Sodium 133 MMOL/L (136-145); Total Protein 5.6 G/DL (6.4-8.3); Troponin I Only < 0.015 NG/ML (0.00-0.045)
[2017-10-10] MEDS ORDERED: ALBUTEROL 2.5 MG/3 ML NEB RESP TX PRN (01:29)
[2017-10-10] MEDS ORDERED: ONDANSETRON 4 MG/2 ML VIAL IV PRN (01:40)
[2017-10-10 02:10] LABS: ABG Base Excess 20.4 MMOL/L (-2.5-2.5); ABG HCO3 55.2 MMOL/L (20-26); ABG Oxygen Saturation 87.8 % (95-100); ABG PO2 66.2 MM HG (80-95); Allen Test Positive; Pt O2 Delivery Device BIPAP
[2017-10-10 02:18] LABS: ABG PCO2 155.2 MM HG (35-48); ABG PH 7.169 (7.35-7.45)
[2017-10-10] MEDS ORDERED: PROPOFOL 1,000 MG/100 ML BOTTLE IV ONE (02:36)
[2017-10-10] MEDS ORDERED: ETOMIDATE 20 MG/10 ML VIAL IV ONE (02:36)
[2017-10-10] MEDS ORDERED: SUCCINYLCHOLINE 200 MG/10 ML VIAL ONE (02:36)
[2017-10-10] MEDS ORDERED: VANCOMYCIN INJ 1,000 MG in SODIUM CHLORIDE 0.9% 250 ML IV SCH (03:00)
[2017-10-10] MEDS: PROPOFOL 1,000 MG/100 ML BOTTLE IV SCH ×2 (03:13→16:30)
[2017-10-10 03:54] LABS: Allen Test Positive; Pt O2 Delivery Device Ventilator
[2017-10-10 03:55] LABS: ABG Base Excess 20.5 MMOL/L (-2.5-2.5); ABG HCO3 53.4 MMOL/L (20-26); ABG Oxygen Saturation 99.4 % (95-100); ABG PH 7.222 (7.35-7.45); ABG PO2 238.1 MM HG (80-95); ABG TCO2 57.5 MMOL/L (23-27)
[2017-10-10 03:58] LABS: ABG PCO2 132.9 MM HG (35-48)
[2017-10-10] MEDS: DOXYCYCLINE HYCLATE INJ 100 MG in SODIUM CHLORIDE 0.9% 100 ML IV SCH ×2 (04:02→15:00)
[2017-10-10] MEDS: methylPREDNISolone SOD SUC 40 MG/1 ML VIAL IV SCH ×4 (04:03→22:17)
[2017-10-10 04:42] LABS: Immature Granulocytes % 0.7 %; Immature Granulocytes Absolute 0.08 #; Lymphocytes # 0.2 10*3/uL (1.4-4.0); Lymphocytes % 1.9 % (21.3-54.2); Mean Corpuscular HGB Conc 29.7 GM/DL (32-36); Mean Corpuscular Hemoglobin 27 PG (27-34); Mean Platelet Volume 10.5 FL (9.6-12.0); Monocytes # 0.1 10*3/uL (0.11-0.8); Monocytes % 0.4 % (1.7-12.7); Neutrophils # 11.4 10*3/uL (1.4-7.4); Platelet Count 183 T/CUMM (130-400); Red Blood Count 4.02 MC/CUMM (3.8-5.5); Red Cell Distribution Width 16.3 % (9.3-17.3); White Blood Count 11.7 T/CUMM (4-12)
[2017-10-10 05:14] LABS: Giant Platelets Few; Hypochromasia 1+; Lymphocytes 4 % (20-55); Platelet Estimate Normal; Segmented Neutrophils 95 % (50-85); Total Cells Counted 100
[2017-10-10 05:15] LABS: Ovalocytes Slight
[2017-10-10 06:02] LABS: Blood Urea Nitrogen 22 MG/DL (7-18); Calcium 8.2 MG/DL (8.5-10.1); Glucose 134 MG/DL (74-106); Osmolality,Calculated 272.2 MOS/KG (273-304); Potassium 4.8 MMOL/L (3.5-5.1); Sodium 134 MMOL/L (136-145)
[2017-10-10] MEDS: ALBUTEROL/IPRATROPIUM 3 ML NEB RESP TX SCH ×3 (07:06→19:29)
[2017-10-10 07:09] LABS: ABG Base Excess 18.8 MMOL/L (-2.5-2.5); ABG HCO3 43.2 MMOL/L (20-26); ABG Oxygen Saturation 99.9 % (95-100); ABG PH 7.244 (7.35-7.45); ABG TCO2 47.8 MMOL/L (23-27); Pt O2 Delivery Device Ventilator
[2017-10-10] MEDS: PANTOPRAZOLE 40 MG VIAL IV SCH (08:45)
[2017-10-10] MEDS: ENOXAPARIN 40 MG/0.4 ML SYRINGE SUBCUT SCH (08:45)
[2017-10-10] MEDS ORDERED: ZINC OXIDE PASTE 113 GM TUBE TOP PRN (14:57)
[2017-10-11] MEDS: ALBUTEROL/IPRATROPIUM 3 ML NEB RESP TX SCH ×4 (00:12→19:49)
[2017-10-11] MEDS: PROPOFOL 1,000 MG/100 ML BOTTLE IV SCH ×4 (01:09→15:40)
[2017-10-11 03:08] LABS: ABG Base Excess 18.9 MMOL/L (-2.5-2.5); ABG HCO3 43.2 MMOL/L (20-26); ABG Oxygen Saturation 99.1 % (95-100); ABG PCO2 58.3 MM HG (35-48); ABG PH 7.501 (7.35-7.45); Allen Test Positive; Pt O2 Delivery Device Ventilator
[2017-10-11] MEDS: methylPREDNISolone SOD SUC 40 MG/1 ML VIAL IV SCH ×4 (03:48→21:20)
[2017-10-11] MEDS: DOXYCYCLINE HYCLATE INJ 100 MG in SODIUM CHLORIDE 0.9% 100 ML IV SCH ×2 (03:48→15:30)
[2017-10-11 05:27] LABS: Basophils % 0.1 % (0.0-0.8); Hematocrit 32.1 VOL% (35.7-47.0); Hemoglobin 10.2 GM/DL (12.0-16.0); Immature Granulocytes % 0.8 %; Immature Granulocytes Absolute 0.08 #; Lymphocytes # 0.4 10*3/uL (1.4-4.0); Lymphocytes % 4.2 % (21.3-54.2); Mean Corpuscular HGB Conc 31.8 GM/DL (32-36); Mean Corpuscular Hemoglobin 27 PG (27-34); Mean Corpuscular Volume 84.5 FL (87-102); Mean Platelet Volume 10.9 FL (9.6-12.0); Monocytes # 0.4 10*3/uL (0.11-0.8); Monocytes % 3.7 % (1.7-12.7); NRBC # 0.02 10*3/uL; Neutrophils # 8.6 10*3/uL (1.4-7.4); Neutrophils % 91.2 % (38.7-73.9); Platelet Count 192 T/CUMM (130-400); Red Cell Distribution Width 17.4 % (9.3-17.3); White Blood Count 9.5 T/CUMM (4-12)
[2017-10-11 05:38] LABS: Calcium 8.3 MG/DL (8.5-10.1); Potassium 3.8 MMOL/L (3.5-5.1)
[2017-10-11 05:53] LABS: Giant Platelets Few; Hypochromasia 1+; Lymphocytes 4 % (20-55); Platelet Estimate Adequate; Segmented Neutrophils 92 % (50-85); Total Cells Counted 100
[2017-10-11] MEDS: PANTOPRAZOLE 40 MG VIAL IV SCH (09:40)
[2017-10-11] MEDS: ENOXAPARIN 40 MG/0.4 ML SYRINGE SUBCUT SCH (09:40)
[2017-10-11] MEDS: GABAPENTIN 50 MG/ML 30 ML/BOTTLE PO SCH (09:40)
[2017-10-11] MEDS: oxyCODONE/ACETAMINOPHEN 5-325 MG TABLET PO PRN (10:45)
[2017-10-11] MEDS: CYCLOBENZAPRINE 10 MG TABLET PO PRN (10:45)
[2017-10-11] MEDS ORDERED: DOCUSATE SODIUM 100 MG CAPSULE PO PRN (12:45)
[2017-10-11] MEDS: DILTIAZEM 60 MG TABLET PO SCH ×3 (13:00→21:20)
[2017-10-11] MEDS ORDERED: GABAPENTIN 300 MG CAPSULE PO SCH (13:00)
[2017-10-11] MEDS: amLODIPine 10 MG TABLET PO SCH (15:30)
[2017-10-11] MEDS: METOPROLOL TARTRATE 100 MG TABLET PO SCH (21:20)
[2017-10-12] MEDS: oxyCODONE/ACETAMINOPHEN 5-325 MG TABLET PO PRN ×3 (00:04→21:14)
[2017-10-12] MEDS: PROPOFOL 1,000 MG/100 ML BOTTLE IV SCH ×3 (00:04→07:09)
[2017-10-12] MEDS: ALBUTEROL/IPRATROPIUM 3 ML NEB RESP TX SCH ×4 (01:02→19:17)
[2017-10-12] MEDS: DOXYCYCLINE HYCLATE INJ 100 MG in SODIUM CHLORIDE 0.9% 100 ML IV SCH ×2 (04:04→15:22)
[2017-10-12 04:05] LABS: ABG Base Excess 15.6 MMOL/L (-2.5-2.5); ABG HCO3 41.6 MMOL/L (20-26); ABG Oxygen Saturation 98.2 % (95-100); ABG PCO2 58.1 MM HG (35-48); ABG PH 7.473 (7.35-7.45); ABG PO2 116.6 MM HG (80-95); ABG TCO2 43.4 MMOL/L (23-27); Allen Test Positive; Pt O2 Delivery Device Ventilator
[2017-10-12] MEDS: methylPREDNISolone SOD SUC 40 MG/1 ML VIAL IV SCH ×4 (04:05→21:15)
[2017-10-12 06:09] LABS: Hemoglobin 11.1 GM/DL (12.0-16.0); Immature Granulocytes % 0.8 %; Immature Granulocytes Absolute 0.07 #; Lymphocytes # 0.3 10*3/uL (1.4-4.0); Lymphocytes % 3.3 % (21.3-54.2); Mean Corpuscular HGB Conc 31.7 GM/DL (32-36); Mean Corpuscular Hemoglobin 27 PG (27-34); Mean Corpuscular Volume 83.9 FL (87-102); Monocytes # 0.3 10*3/uL (0.11-0.8); Monocytes % 3.1 % (1.7-12.7); Neutrophils # 8.5 10*3/uL (1.4-7.4); Neutrophils % 92.8 % (38.7-73.9); Platelet Count 200 T/CUMM (130-400); Red Blood Count 4.17 MC/CUMM (3.8-5.5); Red Cell Distribution Width 17.3 % (9.3-17.3); White Blood Count 9.1 T/CUMM (4-12)
[2017-10-12 06:37] LABS: Lymphocytes 3 % (20-55); Segmented Neutrophils 94 % (50-85); Total Cells Counted 100
[2017-10-12 06:38] LABS: Hypochromasia 2+; Platelet Estimate Adequate; Polychromasia Slight; Target Cells Slight
[2017-10-12 06:46] LABS: Calcium 8.2 MG/DL (8.5-10.1); Osmolality,Calculated 277.7 MOS/KG (273-304); Potassium 3.6 MMOL/L (3.5-5.1)
[2017-10-12] MEDS: amLODIPine 10 MG TABLET PO SCH (09:16)
[2017-10-12] MEDS: DILTIAZEM 60 MG TABLET PO SCH ×4 (09:16→21:05)
[2017-10-12] MEDS: PANTOPRAZOLE 40 MG VIAL IV SCH (09:17)
[2017-10-12] MEDS: ENOXAPARIN 40 MG/0.4 ML SYRINGE SUBCUT SCH (09:17)
[2017-10-12] MEDS: METOPROLOL TARTRATE 100 MG TABLET PO SCH ×2 (09:17→21:05)
[2017-10-12] MEDS: GABAPENTIN 50 MG/ML 30 ML/BOTTLE PO SCH (10:32)
[2017-10-12] MEDS: GABAPENTIN 300 MG CAPSULE PO SCH (10:59)
[2017-10-12] MEDS: CYCLOBENZAPRINE 10 MG TABLET PO PRN ×2 (10:59→21:14)
[2017-10-13] MEDS: ALBUTEROL/IPRATROPIUM 3 ML NEB RESP TX SCH ×4 (00:03→19:59)
[2017-10-13] MEDS: methylPREDNISolone SOD SUC 40 MG/1 ML VIAL IV SCH ×4 (04:00→21:04)
[2017-10-13] MEDS: DOXYCYCLINE HYCLATE INJ 100 MG in SODIUM CHLORIDE 0.9% 100 ML IV SCH ×2 (04:00→16:29)
[2017-10-13] MEDS: METOPROLOL TARTRATE 100 MG TABLET PO SCH ×2 (08:04→21:03)
[2017-10-13] MEDS: DILTIAZEM 60 MG TABLET PO SCH ×4 (08:04→21:03)
[2017-10-13] MEDS: amLODIPine 10 MG TABLET PO SCH (08:04)
[2017-10-13] MEDS: GABAPENTIN 300 MG CAPSULE PO SCH (08:05)
[2017-10-13] MEDS: ENOXAPARIN 40 MG/0.4 ML SYRINGE SUBCUT SCH (08:05)
[2017-10-13] MEDS: PANTOPRAZOLE 40 MG VIAL IV SCH (08:05)
[2017-10-13] MEDS: oxyCODONE/ACETAMINOPHEN 5-325 MG TABLET PO PRN ×3 (08:19→16:42)
[2017-10-13] MEDS: NICOTINE 21 MG/24 HR PATCH TRANSDERM SCH (10:19)
[2017-10-13] MEDS: CYCLOBENZAPRINE 10 MG TABLET PO PRN (21:03)
[2017-10-14] MEDS: ALBUTEROL/IPRATROPIUM 3 ML NEB RESP TX SCH ×4 (00:34→19:39)
[2017-10-14] MEDS: methylPREDNISolone SOD SUC 40 MG/1 ML VIAL IV SCH ×5 (03:33→21:39)
[2017-10-14] MEDS: DOXYCYCLINE HYCLATE INJ 100 MG in SODIUM CHLORIDE 0.9% 100 ML IV SCH ×2 (03:38→17:06)
[2017-10-14] MEDS: oxyCODONE/ACETAMINOPHEN 5-325 MG TABLET PO PRN ×2 (03:40→09:02)
[2017-10-14] MEDS: NICOTINE 21 MG/24 HR PATCH TRANSDERM SCH (09:01)
[2017-10-14] MEDS: DILTIAZEM 60 MG TABLET PO SCH ×4 (09:02→21:38)
[2017-10-14] MEDS: amLODIPine 10 MG TABLET PO SCH (09:02)
[2017-10-14] MEDS: GABAPENTIN 300 MG CAPSULE PO SCH (09:02)
[2017-10-14] MEDS: PANTOPRAZOLE 40 MG VIAL IV SCH (09:02)
[2017-10-14] MEDS: METOPROLOL TARTRATE 100 MG TABLET PO SCH ×2 (09:02→21:38)
[2017-10-14] MEDS: ENOXAPARIN 40 MG/0.4 ML SYRINGE SUBCUT SCH (09:03)
[2017-10-14] MEDS: buPROPion SR 150 MG TABLET PO SCH (14:11)
[2017-10-14] MEDS: CYCLOBENZAPRINE 10 MG TABLET PO PRN ×2 (17:10→23:31)
[2017-10-15] MEDS: ALBUTEROL/IPRATROPIUM 3 ML NEB RESP TX SCH ×4 (00:21→19:21)
[2017-10-15 03:42] LABS: ABG Base Excess 12.7 MMOL/L (-2.5-2.5); ABG HCO3 41.2 MMOL/L (20-26); ABG Oxygen Saturation 79.3 % (95-100); ABG PH 7.361 (7.35-7.45); ABG PO2 48.2 MM HG (80-95); ABG TCO2 43.5 MMOL/L (23-27)
[2017-10-15] MEDS: DOXYCYCLINE HYCLATE INJ 100 MG in SODIUM CHLORIDE 0.9% 100 ML IV SCH ×2 (03:44→15:39)
[2017-10-15 03:57] LABS: ABG PCO2 74.4 MM HG (35-48)
[2017-10-15 04:46] LABS: ABG Base Excess 11.1 MMOL/L (-2.5-2.5); ABG HCO3 39.9 MMOL/L (20-26); ABG Oxygen Saturation 92.7 % (95-100); ABG PH 7.335 (7.35-7.45); ABG PO2 70.8 MM HG (80-95); ABG TCO2 42.3 MMOL/L (23-27)
[2017-10-15 04:49] LABS: ABG PCO2 76.6 MM HG (35-48)
[2017-10-15] MEDS: buPROPion SR 150 MG TABLET PO SCH (08:46)
[2017-10-15] MEDS: DILTIAZEM 60 MG TABLET PO SCH ×4 (08:47→20:10)
[2017-10-15] MEDS: METOPROLOL TARTRATE 100 MG TABLET PO SCH ×2 (08:48→20:10)
[2017-10-15] MEDS: FUROSEMIDE 20 MG TABLET PO SCH (08:49)
[2017-10-15] MEDS: GABAPENTIN 300 MG CAPSULE PO SCH (08:49)
[2017-10-15] MEDS: amLODIPine 10 MG TABLET PO SCH (08:50)
[2017-10-15] MEDS: NICOTINE 21 MG/24 HR PATCH TRANSDERM SCH (08:50)
[2017-10-15] MEDS: PANTOPRAZOLE 40 MG VIAL IV SCH (08:52)
[2017-10-15] MEDS: ENOXAPARIN 40 MG/0.4 ML SYRINGE SUBCUT SCH (09:06)
[2017-10-15] MEDS: methylPREDNISolone SOD SUC 40 MG/1 ML VIAL IV SCH ×2 (11:19→22:13)
[2017-10-15] MEDS: BACITRACIN OINT 0.9 GM PACK TOP SCH (15:39)
[2017-10-16] MEDS: ALBUTEROL/IPRATROPIUM 3 ML NEB RESP TX SCH ×6 (00:47→23:56)
[2017-10-16] MEDS: DOXYCYCLINE HYCLATE INJ 100 MG in SODIUM CHLORIDE 0.9% 100 ML IV SCH ×2 (04:21→15:53)
[2017-10-16] MEDS ORDERED: methylPREDNISolone SOD SUC 40 MG/1 ML VIAL IV ONE (07:53)
[2017-10-16] MEDS ORDERED: ALBUTEROL/IPRATROPIUM 3 ML NEB RESP TX ONE (08:00)
[2017-10-16] MEDS ORDERED: FUROSEMIDE 20 MG/2 ML VIAL IV ONE (09:18)
[2017-10-16] MEDS: FUROSEMIDE 20 MG TABLET PO SCH (09:22)
[2017-10-16] MEDS: DILTIAZEM 60 MG TABLET PO SCH ×3 (09:27→16:22)
[2017-10-16] MEDS: amLODIPine 10 MG TABLET PO SCH (09:28)
[2017-10-16] MEDS: METOPROLOL TARTRATE 100 MG TABLET PO SCH (09:29)
[2017-10-16] MEDS: buPROPion SR 150 MG TABLET PO SCH (09:30)
[2017-10-16] MEDS: GABAPENTIN 300 MG CAPSULE PO SCH (09:31)
[2017-10-16] MEDS: PANTOPRAZOLE 40 MG VIAL IV SCH (09:32)
[2017-10-16] MEDS: NICOTINE 21 MG/24 HR PATCH TRANSDERM SCH (09:38)
[2017-10-16] MEDS: ENOXAPARIN 40 MG/0.4 ML SYRINGE SUBCUT SCH (09:40)
[2017-10-16] MEDS: CYCLOBENZAPRINE 10 MG TABLET PO PRN (09:42)
[2017-10-16] MEDS ORDERED: methylPREDNISolone SOD SUC 40 MG/1 ML VIAL IV SCH (12:00)
[2017-10-16 12:50] LABS: Apearance,Urine CLEAR (Clear); Bacteria,Urine Occasional /HPF (Few); Bilirubin,Urine Negative (Negative); Blood, Urine Negative (Negative); Glucose,Urine (UA) Negative (Negative); Hyaline Casts,Urine 7 /LPF (0-3); Ketones,Urine Negative (Negative); Mucus,Urine Occasional /LPF (Occasional); Nitrite,Urine Positive (Negative); Protein,Urine Negative; RBC,Urine 1 /HPF (0-4); Squamous Epithelial Cell,Urine Occasional /HPF (0-10); Urine Color Yellow (Yellow); Urine Specific Gravity 1.008 (1.001-1.035); Urine Urobilinogen < 2.0 EU/DL (0.2-1.0); WBC,Urine 1 /HPF (0-6)
[2017-10-16 13:23] LABS: Basophils % 0.2 % (0.0-0.8); Hematocrit 40.7 VOL% (35.7-47.0); Hemoglobin 12.3 GM/DL (12.0-16.0); Immature Granulocytes Absolute 0.06 #; Lymphocytes # 0.2 10*3/uL (1.4-4.0); Lymphocytes % 3.9 % (21.3-54.2); Mean Corpuscular HGB Conc 30.2 GM/DL (32-36); Mean Corpuscular Hemoglobin 27 PG (27-34); Mean Corpuscular Volume 90.4 FL (87-102); Mean Platelet Volume 10.8 FL (9.6-12.0); Monocytes # 0.1 10*3/uL (0.11-0.8); Monocytes % 2.2 % (1.7-12.7); NRBC # 0.02 10*3/uL; Neutrophils # 5.4 10*3/uL (1.4-7.4); Neutrophils % 92.7 % (38.7-73.9); Platelet Count 216 T/CUMM (130-400); Red Cell Distribution Width 17.3 % (9.3-17.3); White Blood Count 5.9 T/CUMM (4-12)
[2017-10-16] MEDS: BACITRACIN OINT 0.9 GM PACK TOP SCH (13:45)
[2017-10-16] MEDS: AMINOPHYLLINE 1,000 MG in SODIUM CHLORIDE 0.9% 460 ML IV SCH (13:45)
[2017-10-16] MEDS: PHENYLEPHRINE DRIP 40 MG/250 ML PREMIX IV SCH ×2 (13:45→17:31)
[2017-10-16 13:46] LABS: Albumin 2.1 G/DL (3.4-5.0); Bilirubin,Total 0.6 MG/DL (0.2-1.0); Calcium 7.8 MG/DL (8.5-10.1); Osmolality,Calculated 285.3 MOS/KG (273-304); Potassium 3.6 MMOL/L (3.5-5.1); Total Protein 4.2 G/DL (6.4-8.3)
[2017-10-16 13:48] LABS: Band Neutrophils 19 % (0-10); Lymphocytes 5 % (20-55); Platelet Estimate Adequate; Segmented Neutrophils 73 % (50-85); Total Cells Counted 100
[2017-10-16 13:49] LABS: Hypochromasia Slight
[2017-10-16 14:28] LABS: ABG HCO3 47.7 MMOL/L (20-26); ABG Oxygen Saturation 91.1 % (95-100); ABG PH 7.281 (7.35-7.45); ABG PO2 70.4 MM HG (80-95); ABG TCO2 50.9 MMOL/L (23-27)
[2017-10-16 14:30] LABS: ABG PCO2 103.7 MM HG (35-48)
[2017-10-16] MEDS: MEROPENEM 500 MG in SYRINGE 1 EACH IV SCH (14:36)
[2017-10-16] MEDS ORDERED: SUCCINYLCHOLINE 200 MG/10 ML VIAL ONE (14:44)
[2017-10-16] MEDS ORDERED: PROPOFOL 1,000 MG/100 ML BOTTLE IV ONE (14:44)
[2017-10-16] MEDS: PROPOFOL 1,000 MG/100 ML BOTTLE IV SCH (14:55)
[2017-10-16] MEDS ORDERED: SUCCINYLCHOLINE 200 MG/10 ML VIAL IV ONE (14:55)
[2017-10-16 16:35] LABS: ABG HCO3 39.6 MMOL/L (20-26); ABG Oxygen Saturation 89.2 % (95-100); ABG PO2 65.6 MM HG (80-95); ABG TCO2 42.3 MMOL/L (23-27); Allen Test Positive; Pt O2 Delivery Device Ventilator
[2017-10-16 16:37] LABS: ABG PCO2 90.2 MM HG (35-48)
[2017-10-16] MEDS: VANCOMYCIN INJ 1,000 MG in SODIUM CHLORIDE 0.9% 250 ML IV SCH (17:01)
[2017-10-16] MEDS ORDERED: PHENYLEPHRINE INJ 80 MG in SODIUM CHLORIDE 0.9% 242 ML IV SCH (19:00)
[2017-10-16] MEDS ORDERED: PHENYLEPHRINE DRIP 40 MG/250 ML PREMIX IV SCH (19:00)
[2017-10-16] MEDS: PHENYLEPHRINE INJ 80 MG in SODIUM CHLORIDE 0.9% 492 ML IV SCH (21:30)
[2017-10-17] MEDS: DILTIAZEM 60 MG TABLET PO SCH ×5 (00:13→21:30)
[2017-10-17] MEDS: METOPROLOL TARTRATE 100 MG TABLET PO SCH ×3 (00:13→21:07)
[2017-10-17] MEDS: MEROPENEM 500 MG in SYRINGE 1 EACH IV SCH ×4 (00:26→21:33)
[2017-10-17] MEDS: ALBUTEROL/IPRATROPIUM 3 ML NEB RESP TX SCH ×6 (03:54→23:33)
[2017-10-17] MEDS: VANCOMYCIN INJ 1,000 MG in SODIUM CHLORIDE 0.9% 250 ML IV SCH ×2 (04:19→14:42)
[2017-10-17 04:23] LABS: ABG Base Excess 10.9 MMOL/L (-2.5-2.5); ABG HCO3 37.4 MMOL/L (20-26); ABG Oxygen Saturation 98.9 % (95-100); ABG PCO2 59.8 MM HG (35-48); ABG PH 7.414 (7.35-7.45); ABG TCO2 39.2 MMOL/L (23-27)
[2017-10-17] MEDS: DOXYCYCLINE HYCLATE INJ 100 MG in SODIUM CHLORIDE 0.9% 100 ML IV SCH (05:06)
[2017-10-17] MEDS ORDERED: PHENYLEPHRINE DRIP 40 MG/250 ML PREMIX IV ONE (08:14)
[2017-10-17] MEDS: NICOTINE 21 MG/24 HR PATCH TRANSDERM SCH (08:25)
[2017-10-17] MEDS: ENOXAPARIN 40 MG/0.4 ML SYRINGE SUBCUT SCH (08:26)
[2017-10-17] MEDS: amLODIPine 10 MG TABLET PO SCH (08:26)
[2017-10-17] MEDS: PHENYLEPHRINE INJ 80 MG in SODIUM CHLORIDE 0.9% 492 ML IV SCH ×5 (08:27→23:16)
[2017-10-17] MEDS ORDERED: SODIUM CHLORIDE 0.9% 500 ML IV ONE (08:28)
[2017-10-17] MEDS ORDERED: PHENYLEPHRINE DRIP 40 MG/250 ML PREMIX IV SCH (08:30)
[2017-10-17] MEDS: PANTOPRAZOLE 40 MG VIAL IV SCH (08:35)
[2017-10-17] MEDS ORDERED: MIDAZOLAM 2 MG/2 ML VIAL ONE (09:08)
[2017-10-17] MEDS ORDERED: MIDAZOLAM 2 MG/2 ML VIAL IV ONE (09:10)
[2017-10-17] MEDS: SODIUM CHLORIDE 0.9% 1,000 ML IV SCH (09:31)
[2017-10-17] MEDS: BACITRACIN OINT 0.9 GM PACK TOP SCH (09:31)
[2017-10-17] MEDS: methylPREDNISolone SOD SUC 40 MG/1 ML VIAL IV SCH ×3 (11:01→23:57)
[2017-10-17] MEDS: AMINOPHYLLINE 1,000 MG in SODIUM CHLORIDE 0.9% 460 ML IV SCH (11:03)
[2017-10-17] MEDS ORDERED: ACETAMINOPHEN 325 MG TABLET PO PRN (14:51)
[2017-10-17] MEDS: PROPOFOL 1,000 MG/100 ML BOTTLE IV SCH (17:26)
[2017-10-18] MEDS: CYCLOBENZAPRINE 10 MG TABLET PO PRN ×2 (02:30→21:59)
[2017-10-18] MEDS: VANCOMYCIN INJ 1,000 MG in SODIUM CHLORIDE 0.9% 250 ML IV SCH ×2 (02:30→14:50)
[2017-10-18] MEDS: PROPOFOL 1,000 MG/100 ML BOTTLE IV SCH ×2 (02:39→18:00)
[2017-10-18] MEDS: ALBUTEROL/IPRATROPIUM 3 ML NEB RESP TX SCH ×6 (03:56→23:18)
[2017-10-18] MEDS: PHENYLEPHRINE INJ 80 MG in SODIUM CHLORIDE 0.9% 492 ML IV SCH ×4 (04:04→19:07)
[2017-10-18 04:08] LABS: ABG Base Excess 3.7 MMOL/L (-2.5-2.5); ABG HCO3 27.7 MMOL/L (20-26); ABG Oxygen Saturation 99.1 % (95-100); ABG PCO2 47.1 MM HG (35-48); ABG PH 7.403 (7.35-7.45); ABG TCO2 25.1 MMOL/L (23-27); Allen Test Positive; Pt O2 Delivery Device Ventilator
[2017-10-18] MEDS: AMINOPHYLLINE 1,000 MG in SODIUM CHLORIDE 0.9% 460 ML IV SCH ×2 (05:46→11:22)
[2017-10-18] MEDS: MEROPENEM 500 MG in SYRINGE 1 EACH IV SCH ×3 (06:07→21:44)
[2017-10-18 06:37] LABS: Hematocrit 33.9 VOL% (35.7-47.0); Hemoglobin 11.1 GM/DL (12.0-16.0); Immature Granulocytes Absolute 1.56 #; Lymphocytes # 0.3 10*3/uL (1.4-4.0); Lymphocytes % 1.3 % (21.3-54.2); Mean Corpuscular HGB Conc 32.7 GM/DL (32-36); Mean Corpuscular Hemoglobin 28 PG (27-34); Mean Platelet Volume 11.5 FL (9.6-12.0); Monocytes # 0.3 10*3/uL (0.11-0.8); Monocytes % 1.3 % (1.7-12.7); Neutrophils # 20.1 10*3/uL (1.4-7.4); Neutrophils % 90.4 % (38.7-73.9); Platelet Count 201 T/CUMM (130-400); Red Blood Count 3.99 MC/CUMM (3.8-5.5); Red Cell Distribution Width 18.6 % (9.3-17.3); White Blood Count 22.3 T/CUMM (4-12)
[2017-10-18 07:00] LABS: Calcium 7.3 MG/DL (8.5-10.1); Osmolality,Calculated 288.1 MOS/KG (273-304); Potassium 2.7 MMOL/L (3.5-5.1)
[2017-10-18 07:27] LABS: Band Neutrophils 7 % (0-10); Hypochromasia 1+; Lymphocytes 2 % (20-55); Metamyelocytes 1 %; Segmented Neutrophils 83 % (50-85); Total Cells Counted 100
[2017-10-18 07:28] LABS: Microcytosis 1+; Ovalocytes Slight
[2017-10-18] MEDS: methylPREDNISolone SOD SUC 40 MG/1 ML VIAL IV SCH ×2 (08:53→17:08)
[2017-10-18] MEDS: BACITRACIN OINT 0.9 GM PACK TOP SCH (08:54)
[2017-10-18] MEDS: METOPROLOL TARTRATE 100 MG TABLET PO SCH (08:54)
[2017-10-18] MEDS: PANTOPRAZOLE 40 MG VIAL IV SCH (08:54)
[2017-10-18] MEDS: DILTIAZEM 60 MG TABLET PO SCH ×4 (08:54→21:43)
[2017-10-18] MEDS: amLODIPine 10 MG TABLET PO SCH (08:55)
[2017-10-18] MEDS: ENOXAPARIN 40 MG/0.4 ML SYRINGE SUBCUT SCH (08:55)
[2017-10-18] MEDS: NICOTINE 21 MG/24 HR PATCH TRANSDERM SCH (08:55)
[2017-10-18] MEDS: SODIUM CHLORIDE 0.9% 1,000 ML IV SCH (10:24)
[2017-10-18] MEDS ORDERED: POTASSIUM CHLORIDE 20 MEQ/15 ML UDCUP PO ONE (10:35)
[2017-10-18] MEDS ORDERED: POTASSIUM CHLORIDE RIDER 20 MEQ in PREMIX 1 EACH IV PRN (10:38)
[2017-10-19] MEDS: methylPREDNISolone SOD SUC 40 MG/1 ML VIAL IV SCH ×3 (00:32→16:00)
[2017-10-19] MEDS: fentaNYL 100 MCG/2 ML VIAL IV PRN ×2 (02:38→09:00)
[2017-10-19] MEDS: VANCOMYCIN INJ 1,000 MG in SODIUM CHLORIDE 0.9% 250 ML IV SCH ×2 (02:47→15:00)
[2017-10-19 03:37] LABS: Basophils # 0.1 10*3/uL (0.0-0.2); Basophils % 0.6 % (0.0-0.8); Hematocrit 31.4 VOL% (35.7-47.0); Immature Granulocytes % 5.3 %; Immature Granulocytes Absolute 1.21 #; Lymphocytes # 0.1 10*3/uL (1.4-4.0); Lymphocytes % 0.6 % (21.3-54.2); Mean Corpuscular HGB Conc 31.8 GM/DL (32-36); Mean Corpuscular Hemoglobin 27 PG (27-34); Mean Corpuscular Volume 85.8 FL (87-102); Mean Platelet Volume 11.3 FL (9.6-12.0); Monocytes # 0.5 10*3/uL (0.11-0.8); Monocytes % 2.3 % (1.7-12.7); Neutrophils # 20.7 10*3/uL (1.4-7.4); Neutrophils % 91.2 % (38.7-73.9); Platelet Count 135 T/CUMM (130-400); Red Blood Count 3.66 MC/CUMM (3.8-5.5); Red Cell Distribution Width 18.5 % (9.3-17.3); White Blood Count 22.7 T/CUMM (4-12)
[2017-10-19 03:57] LABS: Blood Urea Nitrogen 21 MG/DL (7-18); Calcium 7.3 MG/DL (8.5-10.1); Glucose 103 MG/DL (74-106); Osmolality,Calculated 283.3 MOS/KG (273-304); Sodium 141 MMOL/L (136-145)
[2017-10-19] MEDS: ALBUTEROL/IPRATROPIUM 3 ML NEB RESP TX SCH ×5 (04:14→20:27)
[2017-10-19] MEDS ORDERED: POTASSIUM CHLORIDE RIDER 10 MEQ in PREMIX 1 EACH IV PRN (04:29)
[2017-10-19 04:58] LABS: Anisocytosis 1+; Band Neutrophils 19 % (0-10); Lymphocytes 1 % (20-55); Nucleated Red Blood Cells 1 (0-5); Poikilocytosis 1+; Segmented Neutrophils 78 % (50-85); Total Cells Counted 100
[2017-10-19 05:02] LABS: ABG Base Excess 4.6 MMOL/L (-2.5-2.5); ABG HCO3 29.2 MMOL/L (20-26); ABG Oxygen Saturation 98.9 % (95-100); ABG PCO2 43.6 MM HG (35-48); ABG PH 7.444 (7.35-7.45); ABG PO2 159.8 MM HG (80-95); ABG TCO2 30.6 MMOL/L (23-27)
[2017-10-19] MEDS: POTASSIUM CHLORIDE RIDER 20 MEQ in PREMIX 1 EACH IV PRN ×3 (05:07→15:00)
[2017-10-19] MEDS: PROPOFOL 1,000 MG/100 ML BOTTLE IV SCH ×3 (05:11→22:01)
[2017-10-19] MEDS: PHENYLEPHRINE INJ 80 MG in SODIUM CHLORIDE 0.9% 492 ML IV SCH ×2 (05:12→20:01)
[2017-10-19] MEDS ORDERED: MAGNESIUM SULF RIDER 2 GM in PREMIX 1 EACH IV PRN (05:35)
[2017-10-19] MEDS ORDERED: MAGNESIUM SULF RIDER 4 GM in PREMIX 1 EACH IV PRN (05:35)
[2017-10-19] MEDS ORDERED: CALCIUM GLUCONATE 2,000 MG in SODIUM CHLORIDE 0.9% 100 ML IV ONE (05:35)
[2017-10-19] MEDS: MEROPENEM 500 MG in SYRINGE 1 EACH IV SCH (05:51)
[2017-10-19] MEDS: PANTOPRAZOLE 40 MG VIAL IV SCH (08:30)
[2017-10-19] MEDS: ENOXAPARIN 40 MG/0.4 ML SYRINGE SUBCUT SCH (08:35)
[2017-10-19] MEDS: NICOTINE 21 MG/24 HR PATCH TRANSDERM SCH (08:35)
[2017-10-19] MEDS: amLODIPine 10 MG TABLET PO SCH (08:35)
[2017-10-19] MEDS: DILTIAZEM 60 MG TABLET PO SCH ×4 (08:35→20:14)
[2017-10-19] MEDS: METOPROLOL TARTRATE 100 MG TABLET PO SCH ×3 (09:00→20:02)
[2017-10-19] MEDS: BACITRACIN OINT 0.9 GM PACK TOP SCH (09:00)
[2017-10-19] MEDS ORDERED: DEXTROSE 50% 25 GM/50 ML VIAL IV PRN (09:31)
[2017-10-19] MEDS ORDERED: GLUCAGON 1 MG VIAL IM PRN (09:31)
[2017-10-19] MEDS: SODIUM CHLORIDE 0.9% 1,000 ML IV SCH (11:10)
[2017-10-19] MEDS: MEROPENEM 1,000 MG in SYRINGE 1 EACH IV SCH ×2 (13:40→22:00)
[2017-10-19 14:17] LABS: Calcium 7.3 MG/DL (8.5-10.1); Osmolality,Calculated 288.1 MOS/KG (273-304); Potassium 3.5 MMOL/L (3.5-5.1)
[2017-10-19] MEDS: AMINOPHYLLINE 1,000 MG in SODIUM CHLORIDE 0.9% 460 ML IV SCH (20:00)
[2017-10-20] MEDS: AMINOPHYLLINE 1,000 MG in SODIUM CHLORIDE 0.9% 460 ML IV SCH ×2 (00:10→12:00)
[2017-10-20] MEDS: ALBUTEROL/IPRATROPIUM 3 ML NEB RESP TX SCH ×7 (00:34→23:30)
[2017-10-20] MEDS: methylPREDNISolone SOD SUC 40 MG/1 ML VIAL IV SCH ×3 (00:51→15:40)
[2017-10-20] MEDS: PHENYLEPHRINE INJ 80 MG in SODIUM CHLORIDE 0.9% 492 ML IV SCH ×2 (01:44→20:03)
[2017-10-20] MEDS: VANCOMYCIN INJ 1,000 MG in SODIUM CHLORIDE 0.9% 250 ML IV SCH ×2 (02:41→15:00)
[2017-10-20 03:49] LABS: ABG Base Excess 4.3 MMOL/L (-2.5-2.5); ABG HCO3 28.2 MMOL/L (20-26); ABG Oxygen Saturation 97.9 % (95-100); ABG PCO2 41.8 MM HG (35-48); ABG PH 7.445 (7.35-7.45)
[2017-10-20 05:11] LABS: Basophils # 0.1 10*3/uL (0.0-0.2); Basophils % 0.4 % (0.0-0.8); Hematocrit 31.2 VOL% (35.7-47.0); Hemoglobin 9.8 GM/DL (12.0-16.0); Immature Granulocytes % 4.8 %; Immature Granulocytes Absolute 0.76 #; Lymphocytes # 0.1 10*3/uL (1.4-4.0); Lymphocytes % 0.9 % (21.3-54.2); Mean Corpuscular HGB Conc 31.4 GM/DL (32-36); Mean Corpuscular Hemoglobin 27 PG (27-34); Mean Platelet Volume 12.6 FL (9.6-12.0); Monocytes # 0.4 10*3/uL (0.11-0.8); Monocytes % 2.5 % (1.7-12.7); Neutrophils # 14.4 10*3/uL (1.4-7.4); Neutrophils % 91.4 % (38.7-73.9); Platelet Count 106 T/CUMM (130-400); Red Blood Count 3.63 MC/CUMM (3.8-5.5); Red Cell Distribution Width 18.3 % (9.3-17.3); White Blood Count 15.8 T/CUMM (4-12)
[2017-10-20 05:36] LABS: Calcium 7.6 MG/DL (8.5-10.1); Osmolality,Calculated 288.1 MOS/KG (273-304); Potassium 3.7 MMOL/L (3.5-5.1)
[2017-10-20] MEDS: MEROPENEM 1,000 MG in SYRINGE 1 EACH IV SCH ×3 (05:47→21:01)
[2017-10-20] MEDS: PROPOFOL 1,000 MG/100 ML BOTTLE IV SCH ×2 (06:30→17:00)
[2017-10-20 07:49] LABS: Band Neutrophils 1 % (0-10); Myelocytes 1 %; Segmented Neutrophils 96 % (50-85)
[2017-10-20 07:50] LABS: Elliptocytes 1+; Hypochromasia 1+
[2017-10-20 07:51] LABS: Platelet Estimate Decreased; Total Cells Counted 100
[2017-10-20] MEDS: amLODIPine 10 MG TABLET PO SCH (08:45)
[2017-10-20] MEDS: PANTOPRAZOLE 40 MG VIAL IV SCH (08:45)
[2017-10-20] MEDS: NICOTINE 21 MG/24 HR PATCH TRANSDERM SCH (08:45)
[2017-10-20] MEDS: METOPROLOL TARTRATE 100 MG TABLET PO SCH (08:45)
[2017-10-20] MEDS: DILTIAZEM 60 MG TABLET PO SCH ×4 (08:45→21:02)
[2017-10-20] MEDS: ENOXAPARIN 40 MG/0.4 ML SYRINGE SUBCUT SCH (08:45)
[2017-10-20] MEDS: BACITRACIN OINT 0.9 GM PACK TOP SCH (09:00)
[2017-10-20] MEDS: SODIUM CHLORIDE 0.9% 1,000 ML IV SCH (13:40)
[2017-10-20] MEDS: POLYVINYL ALCOHOL 1.4% OPH SOLN 15 ML BOTTLE BOTH EYES PRN (18:00)
[2017-10-20] MEDS: METOPROLOL TARTRATE 50 MG TABLET PO SCH (21:02)
[2017-10-21] MEDS: methylPREDNISolone SOD SUC 40 MG/1 ML VIAL IV SCH ×3 (00:33→17:35)
[2017-10-21] MEDS: POLYVINYL ALCOHOL 1.4% OPH SOLN 15 ML BOTTLE BOTH EYES PRN ×2 (01:15→08:38)
[2017-10-21] MEDS: PROPOFOL 1,000 MG/100 ML BOTTLE IV SCH ×3 (02:01→22:03)
[2017-10-21] MEDS: ALBUTEROL/IPRATROPIUM 3 ML NEB RESP TX SCH ×5 (03:20→20:25)
[2017-10-21] MEDS: VANCOMYCIN INJ 1,000 MG in SODIUM CHLORIDE 0.9% 250 ML IV SCH ×3 (03:33→21:51)
[2017-10-21 04:18] LABS: ABG Base Excess 7.2 MMOL/L (-2.5-2.5); ABG HCO3 30.6 MMOL/L (20-26); ABG Oxygen Saturation 98.2 % (95-100); ABG PCO2 38.2 MM HG (35-48); ABG PH 7.521 (7.35-7.45); ABG PO2 123.5 MM HG (80-95); ABG TCO2 31.7 MMOL/L (23-27)
[2017-10-21 04:43] LABS: Basophils % 0.3 % (0.0-0.8); Hemoglobin 9.8 GM/DL (12.0-16.0); Immature Granulocytes % 6.7 %; Lymphocytes # 0.2 10*3/uL (1.4-4.0); Lymphocytes % 1.9 % (21.3-54.2); Mean Corpuscular HGB Conc 31.6 GM/DL (32-36); Mean Corpuscular Hemoglobin 27 PG (27-34); Mean Corpuscular Volume 84.9 FL (87-102); Monocytes # 0.3 10*3/uL (0.11-0.8); Monocytes % 2.9 % (1.7-12.7); Neutrophils # 10.5 10*3/uL (1.4-7.4); Neutrophils % 88.2 % (38.7-73.9); Platelet Count 84 T/CUMM (130-400); Red Blood Count 3.65 MC/CUMM (3.8-5.5); Red Cell Distribution Width 18.6 % (9.3-17.3); White Blood Count 11.9 T/CUMM (4-12)
[2017-10-21 04:55] LABS: Mean Platelet Volume 12.3 FL (9.6-12.0)
[2017-10-21 05:13] LABS: Blood Urea Nitrogen 18 MG/DL (7-18); Calcium 7.8 MG/DL (8.5-10.1); Glucose 106 MG/DL (74-106); Potassium 3.4 MMOL/L (3.5-5.1); Sodium 143 MMOL/L (136-145)
[2017-10-21] MEDS: MEROPENEM 1,000 MG in SYRINGE 1 EACH IV SCH ×3 (05:26→21:52)
[2017-10-21] MEDS: POTASSIUM CHLORIDE RIDER 20 MEQ in PREMIX 1 EACH IV PRN ×2 (05:26→08:36)
[2017-10-21 08:12] LABS: Band Neutrophils 3 % (0-10); Lymphocytes 2 % (20-55); Platelet Estimate Decreased; Segmented Neutrophils 95 % (50-85); Total Cells Counted 100
[2017-10-21 08:13] LABS: Hypochromasia Slight; Target Cells Slight
[2017-10-21] MEDS: METOPROLOL TARTRATE 50 MG TABLET PO SCH ×2 (08:28→21:52)
[2017-10-21] MEDS: PANTOPRAZOLE 40 MG VIAL IV SCH (08:28)
[2017-10-21] MEDS: CYCLOBENZAPRINE 10 MG TABLET PO PRN (08:28)
[2017-10-21] MEDS: DILTIAZEM 60 MG TABLET PO SCH ×4 (08:28→21:51)
[2017-10-21] MEDS: NICOTINE 21 MG/24 HR PATCH TRANSDERM SCH (08:33)
[2017-10-21] MEDS: ENOXAPARIN 40 MG/0.4 ML SYRINGE SUBCUT SCH (08:33)
[2017-10-21] MEDS: amLODIPine 10 MG TABLET PO SCH (09:18)
[2017-10-21] MEDS: BACITRACIN OINT 0.9 GM PACK TOP SCH (09:19)
[2017-10-21] MEDS: PHENYLEPHRINE INJ 80 MG in SODIUM CHLORIDE 0.9% 492 ML IV SCH (19:39)
[2017-10-21] MEDS: SODIUM CHLORIDE 0.9% 1,000 ML IV SCH ×2 (19:40→22:03)
[2017-10-21] MEDS: AMINOPHYLLINE 1,000 MG in SODIUM CHLORIDE 0.9% 460 ML IV SCH ×2 (19:40→20:38)
[2017-10-22] MEDS: ALBUTEROL/IPRATROPIUM 3 ML NEB RESP TX SCH ×7 (00:07→23:37)
[2017-10-22] MEDS: methylPREDNISolone SOD SUC 40 MG/1 ML VIAL IV SCH ×3 (00:13→17:09)
[2017-10-22 03:45] LABS: ABG Base Excess 5.3 MMOL/L (-2.5-2.5); ABG HCO3 29.3 MMOL/L (20-26); ABG Oxygen Saturation 98.3 % (95-100); ABG PCO2 47.9 MM HG (35-48); ABG PH 7.417 (7.35-7.45); ABG TCO2 27.5 MMOL/L (23-27); Allen Test Positive; Pt O2 Delivery Device Ventilator
[2017-10-22 05:03] LABS: Basophils # 0.1 10*3/uL (0.0-0.2); Basophils % 0.4 % (0.0-0.8); Hematocrit 35.2 VOL% (35.7-47.0); Hemoglobin 11.3 GM/DL (12.0-16.0); Immature Granulocytes % 12.4 %; Immature Granulocytes Absolute 1.77 #; Lymphocytes # 0.2 10*3/uL (1.4-4.0); Lymphocytes % 1.5 % (21.3-54.2); Mean Corpuscular HGB Conc 32.1 GM/DL (32-36); Mean Corpuscular Hemoglobin 27 PG (27-34); Mean Corpuscular Volume 84.6 FL (87-102); Mean Platelet Volume 11.9 FL (9.6-12.0); Monocytes # 0.4 10*3/uL (0.11-0.8); Monocytes % 2.9 % (1.7-12.7); NRBC # 0.03 10*3/uL; Neutrophils # 11.9 10*3/uL (1.4-7.4); Neutrophils % 82.8 % (38.7-73.9); Platelet Count 107 T/CUMM (130-400); Red Blood Count 4.16 MC/CUMM (3.8-5.5); Red Cell Distribution Width 18.3 % (9.3-17.3); White Blood Count 14.3 T/CUMM (4-12)
[2017-10-22 05:25] LABS: Hypochromasia 1+; Lymphocytes 3 % (20-55); Metamyelocytes 2 %; Nucleated Red Blood Cells 1 (0-5); Segmented Neutrophils 88 % (50-85); Total Cells Counted 100
[2017-10-22 05:26] LABS: Microcytosis 1+; Ovalocytes Slight; Platelet Estimate Decreased
[2017-10-22 05:38] LABS: Calcium 7.6 MG/DL (8.5-10.1); Potassium 4.3 MMOL/L (3.5-5.1)
[2017-10-22] MEDS: MEROPENEM 1,000 MG in SYRINGE 1 EACH IV SCH ×3 (05:51→21:35)
[2017-10-22] MEDS: PROPOFOL 1,000 MG/100 ML BOTTLE IV SCH ×2 (05:54→15:02)
[2017-10-22 07:29] LABS: Prealbumin 22.9 MG/DL (20-40)
[2017-10-22] MEDS: PANTOPRAZOLE 40 MG VIAL IV SCH (09:45)
[2017-10-22] MEDS: ENOXAPARIN 40 MG/0.4 ML SYRINGE SUBCUT SCH (09:47)
[2017-10-22] MEDS: NICOTINE 21 MG/24 HR PATCH TRANSDERM SCH (09:48)
[2017-10-22] MEDS: DILTIAZEM 60 MG TABLET PO SCH ×4 (09:48→21:35)
[2017-10-22] MEDS: METOPROLOL TARTRATE 50 MG TABLET PO SCH ×2 (09:49→21:35)
[2017-10-22] MEDS: BACITRACIN OINT 0.9 GM PACK TOP SCH (10:02)
[2017-10-22] MEDS: amLODIPine 10 MG TABLET PO SCH (10:03)
[2017-10-22] MEDS: AMINOPHYLLINE 1,000 MG in SODIUM CHLORIDE 0.9% 460 ML IV SCH (15:07)
[2017-10-22] MEDS: VANCOMYCIN INJ 1,000 MG in SODIUM CHLORIDE 0.9% 250 ML IV SCH (15:14)
[2017-10-22] MEDS ORDERED: FUROSEMIDE 40 MG/4 ML VIAL IV ONE (16:00)
[2017-10-23] MEDS: methylPREDNISolone SOD SUC 40 MG/1 ML VIAL IV SCH ×3 (01:02→16:45)
[2017-10-23] MEDS: SODIUM CHLORIDE 0.9% 1,000 ML IV SCH (02:26)
[2017-10-23] MEDS: ALBUTEROL/IPRATROPIUM 3 ML NEB RESP TX SCH ×5 (03:28→19:50)
[2017-10-23 05:29] LABS: ABG Base Excess 8.6 MMOL/L (-2.5-2.5); ABG HCO3 33.4 MMOL/L (20-26); ABG Oxygen Saturation 98.4 % (95-100); ABG PH 7.469 (7.35-7.45); ABG PO2 125.6 MM HG (80-95); ABG TCO2 34.8 MMOL/L (23-27)
[2017-10-23] MEDS: PROPOFOL 1,000 MG/100 ML BOTTLE IV SCH (06:31)
[2017-10-23 07:03] LABS: Basophils # 0.1 10*3/uL (0.0-0.2); Basophils % 0.5 % (0.0-0.8); Hematocrit 36.4 VOL% (35.7-47.0); Hemoglobin 11.8 GM/DL (12.0-16.0); Immature Granulocytes % 14.4 %; Immature Granulocytes Absolute 2.69 #; Lymphocytes # 0.2 10*3/uL (1.4-4.0); Lymphocytes % 1.3 % (21.3-54.2); Mean Corpuscular HGB Conc 32.4 GM/DL (32-36); Mean Corpuscular Hemoglobin 28 PG (27-34); Mean Corpuscular Volume 84.8 FL (87-102); Monocytes # 0.3 10*3/uL (0.11-0.8); Monocytes % 1.6 % (1.7-12.7); NRBC # 0.03 10*3/uL; Neutrophils # 15.4 10*3/uL (1.4-7.4); Neutrophils % 82.2 % (38.7-73.9); Platelet Count 117 T/CUMM (130-400); Red Blood Count 4.29 MC/CUMM (3.8-5.5); Red Cell Distribution Width 18.1 % (9.3-17.3); White Blood Count 18.7 T/CUMM (4-12)
[2017-10-23 07:24] LABS: Band Neutrophils 3 % (0-10); Hypochromasia 1+; Lymphocytes 8 % (20-55); Metamyelocytes 2 %; Microcytosis 1+; Nucleated Red Blood Cells 1 (0-5); Segmented Neutrophils 84 % (50-85); Total Cells Counted 100
[2017-10-23 07:25] LABS: Ovalocytes Slight; Platelet Estimate Adequate
[2017-10-23] MEDS: MEROPENEM 1,000 MG in SYRINGE 1 EACH IV SCH ×3 (07:30→21:24)
[2017-10-23 07:33] LABS: Calcium 7.5 MG/DL (8.5-10.1)
[2017-10-23] MEDS: CYCLOBENZAPRINE 10 MG TABLET PO PRN (07:52)
[2017-10-23] MEDS: DILTIAZEM 60 MG TABLET PO SCH ×4 (08:20→21:24)
[2017-10-23] MEDS: ENOXAPARIN 40 MG/0.4 ML SYRINGE SUBCUT SCH (08:20)
[2017-10-23] MEDS: METOPROLOL TARTRATE 50 MG TABLET PO SCH ×2 (08:20→21:24)
[2017-10-23] MEDS: PANTOPRAZOLE 40 MG VIAL IV SCH (08:21)
[2017-10-23] MEDS: BACITRACIN OINT 0.9 GM PACK TOP SCH (08:21)
[2017-10-23] MEDS: NICOTINE 21 MG/24 HR PATCH TRANSDERM SCH (09:10)
[2017-10-23] MEDS: VANCOMYCIN INJ 1,000 MG in SODIUM CHLORIDE 0.9% 250 ML IV SCH (13:00)
[2017-10-23] MEDS: amLODIPine 10 MG TABLET PO SCH (13:11)
[2017-10-23] MEDS: fentaNYL 100 MCG/2 ML VIAL IV PRN (14:06)
[2017-10-23] MEDS: AMINOPHYLLINE 1,000 MG in SODIUM CHLORIDE 0.9% 460 ML IV SCH (18:39)
[2017-10-24] MEDS: ALBUTEROL/IPRATROPIUM 3 ML NEB RESP TX SCH ×4 (00:23→11:10)
[2017-10-24] MEDS: methylPREDNISolone SOD SUC 40 MG/1 ML VIAL IV SCH ×2 (00:33→09:10)
[2017-10-24] MEDS: VANCOMYCIN INJ 1,000 MG in SODIUM CHLORIDE 0.9% 250 ML IV SCH (02:29)
[2017-10-24] MEDS: MEROPENEM 1,000 MG in SYRINGE 1 EACH IV SCH ×2 (05:43→13:29)
[2017-10-24 06:04] LABS: Basophils # 0.1 10*3/uL (0.0-0.2); Basophils % 0.5 % (0.0-0.8); Hemoglobin 13.1 GM/DL (12.0-16.0); Lymphocytes # 0.3 10*3/uL (1.4-4.0); Lymphocytes % 1.2 % (21.3-54.2); Mean Corpuscular Hemoglobin 28 PG (27-34); Mean Corpuscular Volume 87.2 FL (87-102); Mean Platelet Volume 11.5 FL (9.6-12.0); Monocytes # 0.3 10*3/uL (0.11-0.8); Monocytes % 1.3 % (1.7-12.7); Neutrophils # 19.9 10*3/uL (1.4-7.4); Platelet Count 137 T/CUMM (130-400); Red Cell Distribution Width 17.6 % (9.3-17.3); White Blood Count 23.4 T/CUMM (4-12)
[2017-10-24 06:28] LABS: Band Neutrophils 4 % (0-10); Hypochromasia 1+; Lymphocytes 1 % (20-55); Ovalocytes Slight; Platelet Estimate Normal; Segmented Neutrophils 94 % (50-85); Total Cells Counted 100
[2017-10-24 06:29] LABS: Giant Platelets Few; Microcytosis Slight
[2017-10-24] MEDS: DILTIAZEM 60 MG TABLET PO SCH ×2 (08:43→13:28)
[2017-10-24] MEDS: amLODIPine 10 MG TABLET PO SCH (08:44)
[2017-10-24] MEDS: METOPROLOL TARTRATE 50 MG TABLET PO SCH (08:44)
[2017-10-24] MEDS: ENOXAPARIN 40 MG/0.4 ML SYRINGE SUBCUT SCH (08:44)
[2017-10-24] MEDS: BACITRACIN OINT 0.9 GM PACK TOP SCH (08:45)
[2017-10-24] MEDS: SODIUM CHLORIDE 0.9% 1,000 ML IV SCH ×2 (08:46→13:23)
[2017-10-24] MEDS: NICOTINE 21 MG/24 HR PATCH TRANSDERM SCH (08:46)
[2017-10-24] MEDS: PANTOPRAZOLE 40 MG VIAL IV SCH (08:47)
[2017-10-24 13:22] VITALS: BP 131/91
[2017-10-24] MEDS: CYCLOBENZAPRINE 10 MG TABLET PO PRN (13:33)
== END 2017-10-24 14:00 | DRG 166 ==
LOC: EDUNIT# → N.ED 21:05 → SUATTDRO 10-10 01:24 → N.EDINP 10-10 01:46 → N.ICU 10-10 01:51 → N.4E 10-13 11:42 → N.ICU 10-16 12:11
PROVIDERS: ADMIT Hospitalist; ATTEND Internal Medicine